=== PATIENT | female | born 1940 | race Asian ===

== ENCOUNTER → 2017-08-03 | Outpatient (CLI) | payer OTHER, BC | LOC: BMCIMAGING 08:01 | PROVIDERS: ATTEND Physician Assistant | DX: M19.011 Primary osteoarthritis, right shoulder (principal) ==

== ENCOUNTER → 2017-08-28 | Outpatient (CLI) | payer OTHER, BC | LOC: BMCIMAGING 07:55 | PROVIDERS: ATTEND Physician Assistant | DX: M25.551 Pain in right hip (principal); M16.12 Unilateral primary osteoarthritis, left hip; Z96.641 Presence of right artificial hip joint ==

== ENCOUNTER → 2017-09-08 | Outpatient (CLI) | payer OTHER, BC | LOC: BMCIMAGING 14:49 | PROVIDERS: ATTEND Physician Assistant | DX: M51.36 Other intervertebral disc degeneration, lumbar region (principal) ==

== ENCOUNTER → 2017-11-13 | Outpatient (CLI) | payer OTHER, BC | LOC: FIMAGING 19:01 | PROVIDERS: ATTEND Neurological Surgery | DX: M53.86 Other specified dorsopathies, lumbar region (principal); M48.062 Spinal stenosis, lumbar region with neurogenic claudication; M51.86 Other intervertebral disc disorders, lumbar region; Z87.81 Personal history of (healed) traumatic fracture ==

== ENCOUNTER → 2017-11-30 | Outpatient (CLI) | payer OTHER, BC | LOC: BMCIMAGING 14:32 | PROVIDERS: ATTEND Family Medicine | DX: J34.89 Other specified disorders of nose and nasal sinuses (principal) ==

== ENCOUNTER → 2018-02-14 | Outpatient (CLI) | payer OTHER, BC | DX: J98.4 Other disorders of lung (principal) ==

== ENCOUNTER → 2018-02-20 | Outpatient (CLI) | payer OTHER, BC | LOC: FIMAGING 14:50 | PROVIDERS: ATTEND Family Medicine | DX: R93.8 Abnormal findings on diagnostic imaging of other specified body structures (principal); R05 Cough; K76.89 Other specified diseases of liver ==

== ENCOUNTER → 2018-09-10 | Outpatient (CLI) | payer OTHER, BC | LOC: FIMAGING 13:33 | PROVIDERS: ATTEND Internal Medicine | DX: Z12.31 Encounter for screening mammogram for malignant neoplasm of breast (principal); Z80.3 Family history of malignant neoplasm of breast ==